=== PATIENT | female | born 1950 ===

== ENCOUNTER 2018-05-13 20:40 | Emergency (ER) | payer MEDICARE, MEDICAID ==
[2018-05-13 20:56] VITALS: BP 141/79
--- NOTE | 2018-05-13 21:30 | EDM.PDOC ---
ED HPI GENERAL MEDICAL PROBLEM - General Chief Complaint: Neurological Problem Stated Complaint: DIZZY NAUSEA Time Seen by Provider: 05/13/18 21:30 - History of Present Illness INITIAL COMMENTS - FREE TEXT/NARRATIVE: 67-year-old female presents emergency room with a worsening cough. This is been going on for 5-6 weeks. At times productive. He has been getting worse over the last week. She has not tried anything for the cough. She denies fevers or chills. She's had no significant chest pain or chest pressure. The last couple days she's noticed that she gets dizzy and nauseated at times from the cough. 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 (see below) - Related Data Allergies Allergy/AdvReac Type Severity Reaction Status Date / Time erythromycin base Allergy Rash Verified 09/19/15 17:37 Penicillins Allergy Rash Verified 09/19/15 17:37 Sulfa (Sulfonamide Allergy Rash Verified 09/19/15 17:36 Antibiotics) Home Meds: Home Meds Biotin 5,000 mcg PO DAILY 05/13/18 [History] Calcium Carb & Citrate/Vit D3 [Calcium + D3 ER Tablet] 600 mg PO DAILY 05/13/18 [History] Doxycycline [Vibramycin] 100 mg PO Q12H #14 cap 05/13/18 [Rx] Enalapril [Vasotec] 5 mg PO DAILY 05/13/18 [History] Multivitamins [Tab-A-Roxann] 1 tab PO DAILY 05/13/18 [History] Logan 3,6,9 Combination No.7 [Logan Dha] 1 tab PO DAILY 05/13/18 [History] Oxybutynin 5 mg PO DAILY 05/13/18 [History] Ranitidine HCl [Zantac] 150 mg PO DAILY 05/13/18 [History] Rosuvastatin [Crestor] 10 mg PO DAILY 05/13/18 [History] amLODIPine [Norvasc] 5 mg PO DAILY 05/13/18 [History] Past Medical History Cardiovascular History: Reports: High Cholesterol, Hypertension, Other (See Below) Other Cardiovascular History: septal atrial aneursym- Respiratory History: Reports: Bronchitis, Recurrent, Pneumonia, Recurrent Gastrointestinal History: Reports: GERD 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: Musculoskeletal History: Reports: Osteoporosis Oncologic (Cancer) History: Reports: Other (See Below) Other Oncologic History: endometrial cancer - Past Surgical History GI Surgical History: Reports: Colonoscopy, Other (See Below) Female Surgical History: Reports: Section, Hysterectomy Neurological Surgical History: Reports: Discectomy Social & Family History - Tobacco Use Smoking Status *Q: Never Smoker - Caffeine Use Caffeine Use: Reports: Soda, Tea - Recreational Drug Use Recreational Drug Use: No ED ROS GENERAL - Review of Systems Review Of Systems: See Below Constitutional: Reports: Fever. Denies: No Symptoms, Chills HEENT: Reports: No Symptoms Respiratory: Reports: Cough, Sputum Cardiovascular: Reports: No Symptoms GI/Abdominal: Reports: Nausea. Denies: Abdominal Pain : Reports: No Symptoms Musculoskeletal: Reports: No Symptoms Skin: Reports: No Symptoms Neurological: Reports: Dizziness (From the cough) Psychiatric: Reports: No Symptoms Hematologic/Lymphatic: Reports: No Symptoms ED EXAM, DIZZINESS - Physical Exam Exam: See Below Exam Limited By: No Limitations General Appearance: Alert, No Apparent Distress Eye Exam: Bilateral Eye: Normal Inspection Ears: Normal External Exam, Normal Canal, Hearing Grossly Normal, Normal TMs Nose: Normal Inspection, Normal Mucosa Throat/Mouth: Normal Inspection, Normal Lips, Normal Teeth, Normal Gums, Normal Oropharynx, Normal Voice, No Airway Compromise Head Exam: Atraumatic, Normocephalic Neck: Normal Inspection, Supple, Non-Tender, Full Range of Motion. No: Lymphadenopathy (L), Lymphadenopathy (R) Respiratory/Chest: No Respiratory Distress, Lungs Clear, Normal Breath Sounds Cardiovascular: Normal Peripheral Pulses, Regular Rate, Rhythm, No Edema GI/Abdominal: Normal Bowel Sounds, Soft, Non-Tender Neurological: Other (Cranial nerves II through XII grossly intact all muscle groups the upper lower extremities recall appropriate bilaterally deep tendon reflexes are equal and appropriate bilaterally cerebellar testing is normal) Back Exam: Normal Inspection, Full Range of Motion. No: CVA Tenderness (L), CVA Tenderness (R) Course - Vital Signs Last Recorded V/S: Last Vital Signs Temp 38.7 C H 05/13/18 20:54 Pulse 101 H 05/13/18 20:54 Resp 20 05/13/18 20:54 BP 141/79 H 05/13/18 20:54 Pulse Ox 92 L 05/13/18 22:21 - Orders/Labs/Meds Orders: Active Orders 24 hr Category Date Time Status Chest 2V [CR] Stat Exams 05/13/18 21:47 Taken Meds: Medications Discontinued Medications Generic Name Dose Route Start Last Admin Trade Name Delmy PRN Reason Stop Dose Admin Albuterol 8.5 gm 05/13/18 21:44 05/13/18 22:18 Proventil Hfa INH 05/13/18 21:45 Not Given ONETIME ONE Albuterol 6.7 gm 05/13/18 22:12 05/13/18 22:17 Proventil Hfa INH 05/13/18 22:13 2 puff ONETIME ONE Administration - Re-Assessments/Exams Free Text/Narrative Re-Assessment/Exam: 05/13/18 23:05 No significant improvement with an albuterol MDI chest x-ray shows no infiltrate. At this point to be discharged with an albuterol MDI and a prescription for doxycycline Departure - Departure Time of Disposition: 23:05 Disposition: Home, Self-Care 01 Clinical Impression: Bronchitis - Discharge Information Prescriptions: Doxycycline [Vibramycin] 100 mg PO Q12H #14 cap Referrals: Luz Plummer NETWORK AND THREAT SUPPORT SPECIALIST [Primary Care Provider] - Forms: ED Department Discharge Additional Instructions: Return to the emergency room with any questions or problems. Use your inhaler 2 puffs every 4 hours while awake. Start the doxycycline in the morning take one twice daily until all gone. Don't take your calcium supplement while taking the doxycycline. Follow-up with your regular provider in a week if needed - My Orders Last 24 Hours: My Active Orders 05/13/18 21:47 Chest 2V [CR] Stat - Assessment/Plan Last 24 Hours: My Active Orders 05/13/18 21:47 Chest 2V [CR] Stat
[2018-05-13] MEDS ORDERED: Albuterol 6.7 GM Inhaler INH ONE ×2 (21:44→22:12)
--- NOTE | 2018-05-15 07:45 | CR ---
Chest: Two views of the chest were obtained. Comparison: Prior chest x-ray of 09/19/15. Heart size is normal. Mild tortuosity of the thoracic aorta is seen. Lungs are clear without acute parenchymal change. Slight degenerative change is seen within the spine. Surgical clips are seen within the upper abdomen likely from previous cholecystectomy. Impression: 1. Incidental findings. Nothing acute is seen. Diagnostic code #2
== END 2018-05-13 23:15 | disposition home or self-care (01) ==
LOC: JD.ED 20:40
DX: J40 Bronchitis, not specified as acute or chronic (principal); I10 Essential (primary) hypertension; Z88.1 Allergy status to other antibiotic agents; Z88.2 Allergy status to sulfonamides; Z88.0 Allergy status to penicillin
CPT/HCPCS: 71046; 94664; 99284; A9270; 99283